=== PATIENT | female | born 1960 | race Caucasian/White ===

== ENCOUNTER → 2019-08-03 | Outpatient (CLI) | payer MEDICARE | LOC: RAD 07:00 | DX: R10.11 Right upper quadrant pain (principal) ==

== ENCOUNTER 2019-12-14 09:30 | Emergency (ER) | payer MEDICARE ==
[~2019-12-14] VITALS: Ht 160 cm; Wt 100.0 kg
[2019-12-14] MEDS ORDERED: PREDNISONE10 MG PO (09:40)
[2019-12-14] MEDS ORDERED: IPRATROPIUM BROM3 M1 IH (09:41)
[2019-12-14] MEDS ORDERED: DOXYCYCLINE MO100 M3 PO (09:41)
[2019-12-14] MEDS ORDERED: ESCITALOPRAM10 MG PO (09:41)
[2019-12-14] MEDS ORDERED: VIRTUSSIN A/C118 ML PO (09:41)
[2019-12-14] MEDS ORDERED: CYCLOBENZAPRINE10 M1 PO (09:41)
[2019-12-14] MEDS ORDERED: PANTOPRAZOLE SO40 MG PO (09:41)
[2019-12-14 10:15] LABS: URINE APPEARANCE CLEAR; URINE BILIRUBIN NEGATIVE (NEGATIVE); URINE BLOOD NEGATIVE (NEGATIVE); URINE COLOR YELLOW; URINE GLUCOSE NEGATIVE (NEGATIVE); URINE KETONE NEGATIVE (NEGATIVE); URINE LEUKOCYTE ESTERASE NEGATIVE (NEGATIVE); URINE NITRATE NEGATIVE (NEGATIVE); URINE PROTEIN(semi-quant) TRACE mg/dL (NEGATIVE); URINE UROBILINOGEN NORMAL (NORMAL)
[2019-12-14 10:35] LABS: EOS % 0.3 % (1.0-5.0); HEMATOCRIT 37.3 % (37.0-47.0); HEMOGLOBIN 12.1 g/dL (12.5-16.0); LYMPH# 2.2 (1.50-4.00); MEAN CELL VOLUME 98 fl (78-100); MEAN CORPUSCULAR HEMOGLOBIN 32 pg (27-31); MEAN CORPUSCULAR HGB CONC 32 g/dL (33-37); MEAN PLATELET VOLUME 10.5 fl (7.4-10.4); MONO # 0.6 (0.20-0.80); PLATELET COUNT 206 K/mm3 (130-400); RED CELL DISTRIBUTION WIDTH 12.9 % (11.5-14.5); WHITE BLOOD COUNT 8.9 K/mm3 (4.8-10.8)
[2019-12-14 10:45] LABS: POTASSIUM 3.4 mmol/L (3.5-5.1)
[2019-12-14 10:47] LABS: CALCIUM 8.7 mg/dL (8.3-10.5)
[2019-12-14 12:52] VITALS: BP 137/74
== END 2019-12-14 11:54 | disposition home or self-care (01) ==
LOC: ED 09:30
PROVIDERS: Nurse Practitioner Family
DX: N28.9 Disorder of kidney and ureter, unspecified (principal); K21.9 Gastro-esophageal reflux disease without esophagitis; F32.9 Major depressive disorder, single episode, unspecified